=== PATIENT | male | born 1930 | race Two or more races ===

== ENCOUNTER → 2018-11-18 | Emergency (ER) | payer OTHER ==
[~2018-11-18] VITALS: Ht 170.2 cm; Wt 81.0 kg
[~2018-11-18] MED LIST: ASPI-535 PO; DIAZEPAM 5 MG TAB PO ONE; FINA5TAB4 PO; LOVA20TA PO; MECLIZINE 12.5 MG TAB PO ONE; ONDANSETRON 4 MG INJ IV STA; SOD CHLORIDE 0.9% 1,000 ML IV STA; TERA10CA3 PO
[2018-11-18 17:48] VITALS: Ht 170.2 cm; Wt 81.0 kg
--- NOTE | 2018-11-18 20:22 | ERD ---
ER Documentation Chief Complaint Chief Complaint BIB RA FOR DIZZINESS N/V THIS AM. HPI This is an 87-year-old male with a past medical history of benign prostatic hypertrophy. The patient presents to the emergency department complaining of a sudden onset of a feeling as though the room was spinning around him that began yesterday evening. His son indicates he had multiple episodes of nonbloody nonbilious emesis. His symptoms have persisted for roughly 24 hours. There is no alleviating or exacerbating factors to his symptoms. He is never had any similar symptoms in the past. He denies a headache. He states when he attempts to stand up he feels as though he is going to pass out but denies any weakness of his upper or lower extremities and denies a complete transient loss of consciousness. No shortness of breath. No chest pain. No fevers or shaking or chills. No neck pain. No head trauma. ROS All systems reviewed and are negative except as per history of present illness. Allergies Allergies: Coded Allergies: No Known Allergy (Unverified , 11/18/18) PMhx/Soc Medical and Surgical Hx: pt denies Surgical Hx Hx Cardiac Disorders: Yes (Hyperlipidemia) Hx Alcohol Use: No Hx Substance Use: No Hx Tobacco Use: No Smoking Status: Never smoker Physical Exam Vitals Vital Signs Date Temp Pulse Resp B/P (MAP) Pulse Ox O2 O2 Flow FiO2 Time Delivery Rate 11/18/18 98.4 82 18 119/60 98 Room Air 19:45 (79) 11/18/18 97.6 78 18 122/60 98 Room Air 18:27 (80) 11/18/18 97.6 74 18 124/72 99 17:48 (89) Physical Exam Constitutional:Well-developed. Well-nourished. HEENT:Normocephalic. Atraumatic.Pupils were equal round reactive to light. Dry mucous membranes.No tonsillar exudates. Neck: No nuchal rigidity. No lymphadenopathy. No posterior cervical spine tenderness or step-offs. Respiratory: Not using accessory muscles of respiration.Lungs were clear to auscultation bilaterally. No rhonchi. No rales. No wheezing. Cardiovascular: Regular rate regular rhythm.No murmurs. No rubs were appreciated.S1, S2 normal. Distal pulses are palpable 2+ bilaterally. GI: Abdomen was soft. Nontender. Non Distended. No pulsatile abdominal masses or bruits. No rebound. No guarding. Bowel sounds were present and normal. Muscle skeletal: Full range of motion of both the upper and lower extremities bilaterally.Normal muscle tone.No assymetrical calf tenderness or swelling. Skin: No petechia, no purpura. No lesions on the palms or the soles of the feet. No maculopapular rash. NEURO: Patient was alert, awake, orientated x3.No facial droop. Gait observed an d normal with no ataxia.Speech had regular rate and rhythm. No focal neurological deficits. Peripheral fatigable nystagmus Result Diagram: 11/18/18 17511/18/18 175 Results 24 hrs Laboratory Tests Test 11/18/18 17:53 11/18/18 18:10 White Blood Count 10.8 10^3/ul Red Blood Count 5.12 10^6/ul Hemoglobin 14.7 g/dl Hematocrit 45.6 % Mean Corpuscular Volume 89.1 fl Mean Corpuscular Hemoglobin 28.7 pg Mean Corpuscular Hemoglobin Concent 32.2 g/dl Red Cell Distribution Width 13.8 % Platelet Count 173 10^3/UL Mean Platelet Volume 11.8 fl Immature Granulocytes % 0.400 % Neutrophils % 82.5 % Lymphocytes % 11.9 % Monocytes % 4.7 % Eosinophils % 0.3 % Basophils % 0.2 % Nucleated Red Blood Cells % 0.0 /100WBC Immature Granulocytes # 0.040 10^3/ul Neutrophils # 8.9 10^3/ul Lymphocytes # 1.3 10^3/ul Monocytes # 0.5 10^3/ul Eosinophils # 0.0 10^3/ul Basophils # 0.0 10^3/ul Nucleated Red Blood Cells # 0.0 10^3/ul Prothrombin Time 12.9 Sec Prothrombin Time Ratio 1.0 INR International Normalized Ratio 0.96 Activated Partial Thromboplast Time 29.5 Sec Sodium Level 140 mmol/L Potassium Level 4.2 mmol/L Chloride Level 108 mmol/L Carbon Dioxide Level 24 mmol/L Anion Gap 8 Blood Urea Nitrogen 15 mg/dl Creatinine 0.65 mg/dl Est Glomerular Filtrat Rate mL/min mL/min Glucose Level 121 mg/dl Calcium Level 9.6 mg/dl Total Bilirubin 0.9 mg/dl Direct Bilirubin 0.00 mg/dl Indirect Bilirubin 0.9 mg/dl Aspartate Amino Transf (AST/SGOT) 28 IU/L Alanine Aminotransferase (ALT/SGPT) 15 IU/L Alkaline Phosphatase 53 IU/L Troponin I < 0.012 ng/ml B-Type Natriuretic Peptide 318 PG/ML Total Protein 7.3 g/dl Albumin 4.0 g/dl Globulin 3.30 g/dl Albumin/Globulin Ratio 1.21 Amylase Level 101 U/L Lipase 36 U/L Urine Color YELLOW Urine Clarity CLEAR Urine pH 5.0 Urine Specific [place] 1.019 Urine Ketones 1+ mg/dL Urine Nitrite NEGATIVE mg/dL Urine Bilirubin NEGATIVE mg/dL Urine Urobilinogen NEGATIVE mg/dL Urine Leukocyte Esterase NEGATIVE Sravani/ul Urine Hemoglobin NEGATIVE mg/dL Urine Glucose NEGATIVE mg/dL Urine Total Protein NEGATIVE mg/dl Current Medications Medications Dose Sig/Dipak Start Time Status Last (Trade) Ordered Route PRN Stop Time Admin Dose Reason Admin Ondansetron 4 mg ONCE STAT 11/18/18 DC 11/18/18 HCl (Zofran IV 17:47 11/18/18 18:07 Inj) 17:52 Meclizine 25 mg ONCE ONCE 11/18/18 DC 11/18/18 HCl PO 18:00 11/18/18 18:07 (Antivert) 18:01 Procedures/MDM This patient was seen and evaluated by myself. The patient presented to the emergency department complaining of dizziness. My differential diagnosis inclu ded but was not limited to hypovolemia, myocardial infarction, pulmonary embolism, hypoglycemia, hypoxia, anemia, vasovagal episode, hypothyroidism, anxiety, peripheral or central vertigo. The patient was placed on a bus driver/monitor, continuous pulse oximetry and IV access established by nursing staff. 12 Lead EKG tracing ordered and reviewed by myself showed: Normal sinus rhythm of 74 bpm and no arrhythmia. Occasional PVCs MD interval normal. QRS duration normal. No ST segment elevation No ST segment depression. No changes consistent with acute ischemia. I obtained a CT scan the patient's head which showed mild cerebral volume loss with no intracerebral hemorrhage mass-effect or malacia. I did obtain a chest radiograph as it was concern for possible aspiration pneumonia. There is atelectasis in the left lung base versus questionable infiltrate. However the patient did not complain of cough, was afebrile at this time I did not feel the patient required antibiotics as his clinical picture did not appear to be a result of aspiration pneumonia. Therefore I felt it was more likely atelectasis. The patient received IV fluids Zofran and Antivert. He still felt extremely jacob seous with vertigo. Therefore he received a further dose of Zofran and Valium with no improvement of his symptoms. Given that the patient had intractable vertigo I do feel he requires further follow-up with a possible MRI. The patient receives his care at [facility] and therefore I did feel could be safely transferred to [place] for further evaluation. I spoke with [place] [facility] and patient will be transferred to [place]. Departure Diagnosis: Primary Impression: Vertigo Additional Impression: Near syncope Condition: Serious PATRIA KYLE MD November 18, 2018 20:22
[2018-11-18 21:30] VITALS: BP 125/75; PULSE 90; RESP 18
== END | disposition home or self-care (01) ==
LOC: E/R 17:40
DX: R42 Dizziness and giddiness (principal); R55 Syncope and collapse; R10.9 Unspecified abdominal pain
CPT/HCPCS: 70450; 71045; 80053; 81003; 82150; 83690; 83880; 84484; 85025; 85610; 85730; 87040; 87086; 93005; 96374; 96376; 99285; J2405; J7030